=== PATIENT | female | born 1940 | race Caucasian/White ===

== ENCOUNTER 2022-04-02 12:41 | Outpatient (CLI) | payer MEDICARE, BC | END 2022-04-02 12:42 | disposition home or self-care (01) | LOC: TBSIIMAG 12:41 | PROVIDERS: ATTEND Neurological Surgery | DX: M54.2 Cervicalgia (principal); M47.812 Spondylosis without myelopathy or radiculopathy, cervical region; M43.12 Spondylolisthesis, cervical region | CPT/HCPCS: 72050 ==

== ENCOUNTER 2023-03-11 23:47 | Emergency (ER) | payer MEDICARE, BC | END 2023-03-12 02:57 | LOC: ERS 23:47 | DX: S00.83XA Contusion of other part of head, initial encounter (principal); E78.5 Hyperlipidemia, unspecified; K21.9 Gastro-esophageal reflux disease without esophagitis; I10 Essential (primary) hypertension; W06.XXXA Fall from bed, initial encounter; Z86.73 Personal history of transient ischemic attack (TIA), and cerebral infarction without residual deficits | CPT/HCPCS: 70450; 72125 ==

== ENCOUNTER → 2023-07-04 | Day surgery (SDC) | payer MEDICARE, BC | LOC: RAD 09:10 | PROVIDERS: ATTEND Neurological Surgery | DX: G91.0 Communicating hydrocephalus (principal); Z88.5 Allergy status to narcotic agent; Z53.1 Procedure and treatment not carried out because of patient's decision for reasons of belief and group pressure ==

== ENCOUNTER 2023-10-21 14:51 | Inpatient (IN) | payer MEDICARE, BC ==
[2023-10-21 10:13] VITALS: BMI 23.3
[2023-10-24] MEDS ORDERED: Lidocaine 1% MPF 2 ML VIAL ONE (10:24)
[2023-10-24] MEDS ORDERED: Sodium Chloride 0.9% 100 ML ONE (10:24)
[2023-10-24] MEDS ORDERED: CEFAZOLIN 2 GM VIAL ONE (10:24)
[2023-10-24 11:44] LABS: #Basophils 0.1 thou/uL (0.0-0.2); #Eosinphils 0.2 thou/uL (0.0-0.7); #Monocytes 0.4 thou/uL (0.11-0.59); #Neutrophils 3.7 thou/uL (1.40-6.50); %Basophils 0.9 % (0.0-1.0); %Eosinophils 3.1 % (0.0-10.0); %Lymphocytes 26.9 % (21.0-51.0); %Monocytes 6.3 % (0.0-10.0); %Neutrophils 62.5 % (42.0-75.0); Hematocrit 44.6 % (36.0-47.0); Hemoglobin 14.1 g/dL (12.0-16.0); Mean Corpuscular HGB CONC 31.6 g/dL (32.0-36.0); Mean Corpuscular Hemoglobin 28.9 pg (27.0-31.0); Mean Corpuscular Volume 91.4 fl (78.0-98.0); Mean Platelet Volume 9.4 fL (7.4-10.4); Platelet Count 170 10x3/uL (130-400); RBC Distribution Width 13.3 % (11.5-14.5); Red Blood Cell (RBC) Count 4.88 mill/uL (4.20-5.40); White Blood Cell (WBC) Count 5.8 10x3/uL (4.8-10.8)
[2023-10-24 11:55] LABS: PTT 22.5 sec (22.9-36.1); Prothrombin Time 13.8 sec (12.0-14.7)
[2023-10-24 12:03] LABS: Anion Gap 11 mmol/L (10-20); BUN (Urea Nitrogen) 17 mg/dL (9.8-20.1); Calc. Creatinine Clearance 42 mL/min (70-130); Calcium 9.1 mg/dL (7.8-10.44); Carbon Dioxide 26 mmol/L (23-31); Chloride 110 mmol/L (98-107); Estimated GFR 55; Glucose 80 mg/dL (83-110); Potassium 4.4 mmol/L (3.5-5.1); Sodium 143 mmol/L (136-145)
[2023-10-24] MEDS ORDERED: fentaNYL PF 100 MCG/2 ML SYRINGE ONE (12:53)
[2023-10-24] MEDS ORDERED: PROPOFOL 20 ML ONE ×2 (12:54→15:38)
[2023-10-24] MEDS ORDERED: Lidocaine 1% (PF) 30 ML VIAL ONE (13:16)
[2023-10-24] MEDS ORDERED: EPINEPHrine 1 MG/ML VIAL ONE (13:16)
[2023-10-24] MEDS ORDERED: Vancomycin 1 GM VIAL ONE ×2 (13:16→15:24)
[2023-10-24] MEDS ORDERED: Thrombin 5000 UNITS/5 ML VIAL ONE (13:17)
[2023-10-24] MEDS ORDERED: Acetaminophen 325 MG TAB PO PRN (13:19)
[2023-10-24] MEDS ORDERED: Docusate 100 MG CAP PO PRN (13:19)
[2023-10-24] MEDS ORDERED: Labetalol HCl 100 MG/20 ML VIAL SLOW IVP PRN (13:19)
[2023-10-24] MEDS ORDERED: Promethazine HCl 25 MG/ML VIAL IM PRN ×2 (13:19→15:56)
[2023-10-24] MEDS ORDERED: Mag-Al 1200 mg/1200 mg/30 ML UDCUP PO PRN (13:19)
[2023-10-24] MEDS ORDERED: hydrALAZINE 20 MG/ML VIAL SLOW IVP PRN (13:19)
[2023-10-24] MEDS ORDERED: Acetaminophen/Codeine 30-300mg Tablet PO PRN (13:22)
[2023-10-24] MEDS ORDERED: Vancomycin HCl 20 MG, Gentamicin (PEDI) 8 MG, Admixture Fee 1 EACH in Sodium Chloride 0... FS SCH (13:45)
[2023-10-24] MEDS ORDERED: Ondansetron PF 4 MG/2 ML Vial ONE ×2 (13:58→15:33)
[2023-10-24] MEDS ORDERED: Rocuronium Bromide 10 MG/ML (10ML VIAL) ONE (13:58)
[2023-10-24] MEDS ORDERED: PHENYLEPHRINE-NS 100 MCG/ML 10 ML SYRINGE ONE (13:58)
[2023-10-24] MEDS ORDERED: Lidocaine 1% PF 5 ML VIAL ONE (13:58)
[2023-10-24] MEDS ORDERED: PROPOFOL 200 MG/20 ML VIAL ONE (13:58)
[2023-10-24] MEDS ORDERED: SUGAMMADEX SODIUM 200 MG/2 ML VIAL ONE ×2 (15:31→15:34)
[2023-10-24] MEDS ORDERED: Ondansetron HCl/PF 4 MG/2 ML Vial IVP PRN (15:56)
[2023-10-24] MEDS: Morphine 2 MG/ML VIAL SLOW IVP PRN (22:30)
[2023-10-24] MEDS: Sodium Chloride 0.9% 1,000 ML IV SCH (22:30)
[2023-10-25] MEDS: Vancomycin (BATCH) 1.5 GM in Premix 1 BAG IVPB SCH ×2 (01:18→13:59)
[2023-10-25] MEDS: Morphine 2 MG/ML VIAL SLOW IVP PRN (03:11)
[2023-10-25] MEDS: Ondansetron PF 4 MG/2 ML Vial IVP PRN ×2 (03:16→11:59)
[2023-10-25] MEDS: Sodium Chloride 0.9% 1,000 ML IV SCH ×2 (07:42→13:59)
[2023-10-25] MEDS ORDERED: Ondansetron PF 4 MG/2 ML Vial IVP PRN (14:43)
[2023-10-26] MEDS: Sodium Chloride 0.9% 1,000 ML IV SCH (09:39)
[2023-10-26] MEDS: Morphine 2 MG/ML VIAL SLOW IVP PRN (09:52)
[2023-10-26 12:07] VITALS: TEMP 97.5
[2023-10-26 13:40] VITALS: BP 151/93
[2023-10-26] MEDS ORDERED: Potassium Chloride 10 MEQ TAB PO SCH (17:00)
[2023-10-26] MEDS ORDERED: Montelukast Sodium 10 mg Tablet PO SCH (21:00)
[2023-10-26] MEDS ORDERED: Sotalol HCl 80 MG TAB PO SCH (21:00)
[2023-10-26] MEDS ORDERED: levETIRAcetam 500 mg/5 ml Oral Solution PO SCH (21:00)
[2023-10-27] MEDS ORDERED: Atorvastatin Calcium 10 MG TAB PO SCH (09:00)
[2023-10-27] MEDS ORDERED: Amlodipine 5 MG TAB PO SCH (09:00)
[2023-10-27] MEDS ORDERED: FLU VACC QS2023(65UP)/MF59C/PF 60 MCG/0.5 ML SYRINGE IM ONE (18:15)
== END 2023-10-26 15:50 | disposition home or self-care (01) | DRG 32 ==
LOC: EDSTATUS 14:52 → SURG A 10-24 09:47 → SJJU 10-24 17:44
PROVIDERS: ADMIT Neurological Surgery; ATTEND Neurological Surgery
PROC: 0WWG0JZ Revision of Synthetic Substitute in Peritoneal Cavity, Open Approach (ICD-10-PCS; principal; 2023-10-24)
DX: T85.890A Other specified complication of nervous system prosthetic devices, implants and grafts, initial encounter (principal); G91.0 Communicating hydrocephalus; G89.29 Other chronic pain; Z96.653 Presence of artificial knee joint, bilateral; G83.9 Paralytic syndrome, unspecified; F32.A Depression, unspecified; Z86.73 Personal history of transient ischemic attack (TIA), and cerebral infarction without residual deficits; Z98.49 Cataract extraction status, unspecified eye; Z90.710 Acquired absence of both cervix and uterus; Z98.890 Other specified postprocedural states; Z98.51 Tubal ligation status; Z88.1 Allergy status to other antibiotic agents; Z88.8 Allergy status to other drugs, medicaments and biological substances
CPT/HCPCS: 70450; 80048; 85025; 85610; 85730; 86850; 86900; 86901; 93005; 93010; C1750; J0171; J2001; J2272; J2405; J2704; J3370; J3490; J7050